=== PATIENT | female | born 1965 | race Caucasian/White ===

== ENCOUNTER 2019-06-19 23:27 | Emergency (ER) | payer BC, OTHER ==
[~2019-06-19] VITALS: Ht 160 cm; Wt 50.3 kg
[~2019-06-19 23:27] MED LIST: DULO60CA45 PO
--- NOTE | 2019-06-20 00:05 | NUR ---
PATIENT WAS MSE BY DR GREEN IN ROOM 04B. PATIENT A & O X3.
[2019-06-20] MEDS ORDERED: KETOROLAC TROMETHAMINE 15 MG INJ IVP ONE (00:15)
[2019-06-20] MEDS ORDERED: KETOROLAC TROMETHAMINE 15 MG INJ ONE (00:22)
[2019-06-20 00:27] LABS: BASOPHILS # (AUTO) 0.1 K/uL (0.0-8.0); EOSINOPHILS # (AUTO) 0.1 K/uL (0.0-0.7); EOSINOPHILS % (AUTO) 1.2 % (0.0-7.0); HEMATOCRIT 36.8 % (31.2-41.9); HEMOGLOBIN 12.5 g/dL (10.9-14.3); LYMPHOCYTES # (AUTO) 2.1 K/uL (20.0-40.0); LYMPHOCYTES % (AUTO) 29.8 % (20.5-51.5); MEAN CORPUSCULAR HEMOGLOBIN 29.7 uug (24.7-32.8); MEAN CORPUSCULAR HGB CONC 34 g/dL (32.3-35.6); MEAN CORPUSCULAR VOLUME 87.2 fL (75.5-95.3); MONOCYTES # (AUTO) 0.7 K/uL (2.0-10.0); MONOCYTES % (AUTO) 10.5 % (0.0-11.0); NEUTROPHILS % (AUTO) 57.5 % (38.5-71.5); PLATELET COUNT (AUTO) 262 K/uL (179-408); RED BLOOD CELL COUNT(AUTO) 4.22 MIL/uL (3.63-4.92)
[2019-06-20 00:38] LABS: BILIRUBIN,DIRECT 0.1 mg/dL (0.0-0.2); BILIRUBIN,TOTAL 0.5 mg/dL (0.2-1.0); POTASSIUM 3.8 mmol/L (3.5-5.1)
[2019-06-20] MEDS ORDERED: predniSONE 20 MG TABLET PO ONE (01:30)
[2019-06-20] MEDS ORDERED: predniSONE 20 MG TABLET ONE (01:34)
[2019-06-20] MEDS ORDERED: MORPHINE SULFATE 4 MG/1 ML DISP.SYRIN ONE (01:44)
[2019-06-20] MEDS ORDERED: DEXAMETHASONE SOD PHOSPHATE 4 MG INJ IV ONE (01:45)
[2019-06-20] MEDS ORDERED: MORPHINE SULFATE 4 MG/1 ML DISP.SYRIN IV ONE (01:45)
[2019-06-20] MEDS ORDERED: ONDANSETRON 4 MG/2 ML VIAL IV ONE (01:45)
[2019-06-20] MEDS ORDERED: DEXAMETHASONE SOD PHOSPHATE 10 MG INJ ONE (01:45)
[2019-06-20] MEDS ORDERED: ONDANSETRON 4 MG/2 ML VIAL ONE (01:53)
--- NOTE | 2019-06-20 01:55 | NUR ---
DR GREEN MADE PATIENT AWARE OF TEST RESULTS WILL DC HOME.
--- NOTE | 2019-06-20 01:59 | NUR ---
Patient discharged to home in stable conditon. Written and verbal after care instructions given. Patient verbalizes understanding of instructions.
[2019-06-20 02:03] VITALS: BP 128/85
== END 2019-06-20 02:07 | disposition home or self-care (01) ==
LOC: ER 23:29
DX: I88.8 Other nonspecific lymphadenitis (principal); Z88.8 Allergy status to other drugs, medicaments and biological substances; Z79.899 Other long term (current) drug therapy
CPT/HCPCS: 36415; 80048; 80076; 84484; 85025; 85730; 86403; 87070; 87400; 96374; 96375; 99283; J1100; J1885; J2270; J2405; 70030-TC; A4663; J7512